=== PATIENT | male | born 1950 | race American Indian/Alaskan Native ===

== ENCOUNTER 2018-01-24 17:50 | Emergency (ER) | payer SELFPAY ==
--- NOTE | 2018-01-24 20:48 | Emergency Department Report ---
<KEYSHA MONTALVO - Last Filed: 01/24/18 22:31> ED Extremity Problem HPI - General Chief complaint: Pain General Stated complaint: LEFT LEG PAIN Time Seen by Provider: 01/24/18 20:18 Source: patient, family Mode of arrival: Ambulatory Limitations: Physical Limitation - History of Present Illness Initial comments: 67-year-old male past medical history? Dementia, smoker, chronic joint pain,? History of previous CVAs as per patient's son Raymon Del Valle . Patient is awake and alert however is unable to provide a detailed history. Rambles somewhat. Is alert to person and place but not time. Patient is unable to clearly tell me why he came to the hospital today. Patient states he was brought in by EMS. I called the patient's son at listed phone number and spoke to both his son and his [id number] Ms. Clemente. As per family members patient has had persistent cough for 2 weeks. As per patient's family members patient has had increasing difficulty with short-term memory and has been developing some degree of difficulty with cognition. There unable to elaborate further. They have been attempting to get patient primary care but have been unsuccessful. Patient is also complaining of acute on chronic left knee pain. Patient denies nausea or vomiting. States he is having cough but denies chest pain or palpitations or shortness of breath. No audible wheezing or stridor noted on exam. Patient denies sore throat earache or runny nose. Denies body aches. Patient states he smokes heavily but denies any other drug use. Patient 's son came to the ED after I requested that he come to assist me with interviewing his father. Complaint: extremity pain Onset/Timin -: week(s) Location: left, lower extremity (left knee) -: Yes arthralgia Radiation: distal Severity scale (0 -10): 6 Quality: aching Consistency: constant Improves with: nothing Worsens with: weight bearing Associated Symptoms: other (cough) - Related Data Previous Rx's Medication Instructions Recorded Last Taken Type ALBUTEROL Inhaler [ProAir HFA 2 puff IH QID PRN #1 inhalation 01/25/18 Unknown Rx Inhaler] Acetaminophen 100 mg PO QID PRN #60 tablet 01/25/18 Unknown Rx Azithromycin [Zithromax Z-MARIANNE] 250 mg PO DAILY #6 tab 01/25/18 Unknown Rx Allergies Allergy/AdvReac Type Severity Reaction Status Date / Time No Known Allergies Allergy Verified 01/24/18 20:26 ED Review of Systems ROS: Stated complaint: LEFT LEG PAIN Other details as noted in HPI Constitutional: denies: chills, fever Eyes: denies: eye pain, eye discharge, vision change ENT: denies: ear pain, throat pain Respiratory: cough. denies: shortness of breath, wheezing Cardiovascular: denies: chest pain, palpitations Endocrine: no symptoms reported Gastrointestinal: denies: abdominal pain, nausea, diarrhea Genitourinary: denies: urgency, dysuria Musculoskeletal: as per HPI, arthralgia (chronic left knee pain). denies: back pain, joint swelling Skin: denies: rash, lesions Neurological: denies: headache, weakness, paresthesias Psychiatric: denies: anxiety, depression Hematological/Lymphatic: denies: easy bleeding, easy bruising ED Past Medical Hx - Past Medical History Previous Medical History?: Yes Hx Hypertension: Yes Additional medical history: hyperlipidemia - Surgical History Past Surgical History?: Yes Additional Surgical History: bleeding ulcer repair - Social History Smoking Status: Current Every Day Smoker Substance Use Type: Alcohol - Medications Home Medications: Home Medications Medication Instructions Recorded Confirmed Last Taken Type ALBUTEROL Inhaler [ProAir HFA 2 puff IH QID PRN #1 inhalation 01/25/18 Unknown Rx Inhaler] Acetaminophen 100 mg PO QID PRN #60 tablet 01/25/18 Unknown Rx Azithromycin [Zithromax Z-MARIANNE] 250 mg PO DAILY #6 tab 01/25/18 Unknown Rx ED Physical Exam - General Limitations: Physical Limitation General appearance: alert, in no apparent distress - Head Head exam: Present: atraumatic, normocephalic - Eye Eye exam: Present: normal appearance, PERRL, EOMI - ENT ENT exam: Present: mucous membranes moist - Neck Neck exam: Present: normal inspection - Respiratory Respiratory exam: Present: decreased breath sounds (slightly decreased breath sounds no wheezing noted on exam). Absent: respiratory distress - Cardiovascular Cardiovascular Exam: Present: regular rate, normal rhythm. Absent: systolic murmur, diastolic murmur, rubs, gallop - GI/Abdominal GI/Abdominal exam: Present: soft (abdomen soft nontender nondistended), normal bowel sounds - Rectal Rectal exam: Present: deferred - Extremities Exam Extremities exam: Present: normal inspection - Expanded Lower Extremity Exam Left Knee exam: Present: full ROM (flexion and extension intact left knee), full knee extension Lower Leg exam: Present: normal inspection, full ROM - Back Exam Back exam: Present: normal inspection - Neurological Exam Neurological exam: Present: alert, oriented X3, CN II-XII intact - Expanded Neurological Exam Expanded Patient oriented to: Present: person, place Cranial nerves: EOM's Intact: Normal, Facial Sensation: Normal Cerebellar function: Finger to Nose: Normal Sensory exam: Upper Extremity Light Touch: Normal, Lower Extremity Light Touch: Normal Motor strength exam: RUE: 5, LUE: 5, RLE: 5, LLE: 5 Best Eye Response (Sarah): (4) open spontaneously Best Motor Response (Chelsea): (6) obeys commands Best Verbal Response (Chelsea): (5) oriented Sarah Total: 15 - Psychiatric Psychiatric exam: Present: normal affect, normal mood - Skin Skin exam: Present: warm, dry, intact, normal color. Absent: rash ED Course Vital Signs 01/24/18 01/24/18 18:25 20:25 Temperature 98.9 F Pulse Rate 103 H 94 H Respiratory 18 17 Rate Blood Pressure 153/95 O2 Sat by Pulse 96 99 Oximetry ED Medical Decision Making - Medical Decision Making A/P: Concern for bilateral pneumonia with bilateral pulmonary infiltrates, acute on chronic left knee pain 1- discussed case with Dr. Trevino, will send labs as per my discussion with him 2- pts son Mr. Raymon Del Valle came to Ed but left shortly afterward, stated he could be reached at phone numbed I listed in HPI via his wifes cell phone 3-I signed out pt to [facility] Mr. Cunningham to continue pt's care Critical care attestation.: If time is entered above; I have spent that time in minutes in the direct care of this critically ill patient, excluding procedure time. ED Disposition Clinical Impression: CAP (community acquired pneumonia) Qualifiers: Laterality: unspecified laterality Qualified Code(s): J18.9 - Pneumonia, unspecified organism Pneumonia of both lower lobes Qualifiers: Pneumonia type: due to unspecified organism Qualified Code(s): J18.1 - Lobar pneumonia, unspecified organism Disposition: TO HOME OR SELFCARE Condition: Good Instructions: Bacterial Pneumonia (ED) Prescriptions: Acetaminophen 100 mg PO QID PRN #60 tablet PRN Reason: pain fever ALBUTEROL Inhaler [ProAir HFA Inhaler] 2 puff IH QID PRN #1 inhalation PRN Reason: Shortness Of Breath Azithromycin [Zithromax Z-MARIANNE] 250 mg PO DAILY #6 tab Referrals: [facility] [Outside] - 3-5 Days Forms: Work/School Release Form(ED) <YARY CUNNINGHAM - Last Filed: 01/25/18 01:07> ED Course - Reevaluation(s) Reevaluation #1: 01/25/18 00:24 Pt ambulated from room to main ed and back to room without experiencing sob no cp no dizziness no light headedness, O2 sat is 98 % room air no wheezing no rhonchi, no change in mentation, discussed dicharge, tx, and follow up plan with patient, will holman same with son, son called Mr. Raymon Camilo [phone] , left message to return to picker and sorter load and unload patient, will call again in 15 min. 01/25/18 00:25 01/25/18 00:26 01/25/18 00:45 labs noted, Port score: 98 for hx cva, AMS interimittent, and age, Spoke with daughter in law advises she and son are in route to picker and sorter load and unload patient plan: Zpack 5 days, albuterol inhaler, Tylenol prn pain , cheratussin prn cough, follow up with [facility] in 2-3 days return to ed if symptoms worsen. 01/25/18 01:01 ED Medical Decision Making - Lab Data Result diagrams: 01/24/18 22:18 01/24/18 22:18 ED Disposition Is pt being admited?: No Does the pt Need Aspirin: No Time of Disposition: 01:07
[2018-01-24] MEDS ORDERED: TYLENOL PO ONE (21:04)
--- NOTE | 2018-01-24 21:15 | XRay Report ---
FINAL REPORT PROCEDURE: XR KNEE 3V LT TECHNIQUE: LEFT knee radiographs, AP, lateral and sunrise views. CPT 60622 HISTORY: left knee pain COMPARISON: No prior studies are available for comparison. FINDINGS: Fracture (s) and/or Dislocation(s): No acute fracture is seen. There is a linear bony density along medial femoral condyle which could be an old cortical chip fracture possibly associated with medial collateral ligament injury.. Alignment: Normal . Joint space(s): Normal . Soft tissues: There is no joint effusion.. Bone mineralization: Normal . Foreign bodies: None . IMPRESSION: Suspected old fracture of the medial femoral condyle. No acute bony or soft tissue abnormality is seen..
--- NOTE | 2018-01-24 21:52 | XRay Report ---
FINAL REPORT PROCEDURE: XR CHEST ROUTINE 2V TECHNIQUE: A portable AP chest radiograph was obtained at 01/24/2018 21:07 (EST) . CPT 10642 HISTORY: persistent cough COMPARISON: No prior studies are available for comparison. FINDINGS: Heart: Normal. Mediastinum/Vessels: Normal. Lungs/Pleural space: There are bilateral perihilar pulmonary opacities suggesting infiltrates. These are more prominent on the left. Pulmonary nodules not entirely excluded.. There are no effusions or pneumothoraces. Bony thorax: No acute osseous abnormality. Life support devices: None. IMPRESSION: The heart size is normal.. There are bilateral perihilar pulmonary opacities suggesting infiltrates. These are more prominent on the left. Pulmonary nodules not entirely excluded.. There are no effusions or pneumothoraces.
[2018-01-24] MEDS ORDERED: cefTRIAXone 1 GM in NACL 0.9% 20 ML IV ONE (22:12)
[2018-01-24] MEDS ORDERED: NACL 0.9% 500 ML 500 ML IV ONE (22:12)
[2018-01-24] MEDS ORDERED: ROCEPHIN IM ONE (22:23)
[2018-01-24 22:43] LABS: BUN/Creatinine Ratio 16; Blood Urea Nitrogen 14 mg/dL (9-20); Calcium 10.2 mg/dL (8.4-10.2); Hemolysis Index 17
[2018-01-24 22:45] LABS: Basophils % (Auto) 0.3 % (0.0-1.8); Eosinophils # (Auto) 0.3 K/mm3 (0.0-0.4); Eosinophils % (Auto) 2.6 % (0.0-4.3); Hematocrit 45.2 % (35.5-45.6); Hemoglobin 14.8 gm/dl (11.8-15.2); Lymphocytes % (Auto) 10.4 % (13.4-35.0); Mean Corpuscular HGB Conc 33 % (32-34); Mean Corpuscular Hemoglobin 32 pg (28-32); Mean Corpuscular Volume 98 fl (84-94); Monocytes % (Auto) 10.5 % (0.0-7.3); Platelet Count 243 K/mm3 (140-440); Red Blood Count 4.63 M/mm3 (3.65-5.03); Red Cell Distribution Width 16.1 % (13.2-15.2)
[2018-01-25 01:16] VITALS: BP 165/94
== END 2018-01-25 01:14 | disposition home or self-care (01) ==
LOC: ED 17:50
DX: J18.9 Pneumonia, unspecified organism (principal); I10 Essential (primary) hypertension; F17.200 Nicotine dependence, unspecified, uncomplicated
CPT/HCPCS: 36415; 71046; 73562; 80048; 82140; 82805; 85025; 87040; 87400; 96365; 99284; J0696; J7040

== ENCOUNTER 2018-04-03 02:06 | Emergency (ER) | payer SELFPAY ==
[2018-04-03 05:07] LABS: Basophils % (Auto) 0.6 % (0.0-1.8); Eosinophils # (Auto) 0.2 K/mm3 (0.0-0.4); Eosinophils % (Auto) 2.6 % (0.0-4.3); Hematocrit 44.7 % (35.5-45.6); Hemoglobin 14.9 gm/dl (11.8-15.2); Lymphocytes # (Auto) 1.8 K/mm3 (1.2-5.4); Lymphocytes % (Auto) 26.6 % (13.4-35.0); Mean Corpuscular HGB Conc 33 % (32-34); Mean Corpuscular Hemoglobin 33 pg (28-32); Mean Corpuscular Volume 97 fl (84-94); Monocytes # (Auto) 0.7 K/mm3 (0.0-0.8); Monocytes % (Auto) 9.6 % (0.0-7.3); Platelet Count 268 K/mm3 (140-440); Red Blood Count 4.59 M/mm3 (3.65-5.03); Red Cell Distribution Width 16.2 % (13.2-15.2)
[2018-04-03 05:43] LABS: Alanine Aminotransferase 13 units/L (7-56); Albumin 4.6 g/dL (3.9-5); BUN/Creatinine Ratio 13; Blood Urea Nitrogen 9 mg/dL (9-20); Calcium 9.6 mg/dL (8.4-10.2); Hemolysis Index 2
--- NOTE | 2018-04-03 12:34 | Cat Scan Report ---
CT HEAD WITHOUT CONTRAST INDICATION: Dizziness, lightheadedness. COMPARISON: None similar. FINDINGS: Noncontrast head CT demonstrates symmetric, age-appropriate ventricles and sulci. Moderate to severe periventricular and white matter hypodense small vessel ischemic disease. Few small scattered lacunar infarcts as well, measuring up to 0.6 cm left inferior ganglionic, axial series 2, image 27. No definite acute infarct, hemorrhage, mass effect or midline shift. No abnormal extra axial fluid collections. Normal imaged posterior fossa with preserved basilar cisterns. Normal eye globes. Clear imaged paranasal sinuses and mastoid air cells. Slight leftward nasal septal bowing. Intact calvarium. Normal scalp. Few missing teeth. Approximately 1 cm left maxillary periapical cyst not excluded partially imaged as on axial series 3, image 1. CONCLUSION: No acute intracranial CT abnormality with age-appropriate atrophy, advanced microvascular changes and few other findings, as above. Thank you for the opportunity to participate in this patient's care.
--- NOTE | 2018-04-03 12:49 | XRay Report ---
PORTABLE CHEST INDICATION: Dizziness, lightheadedness. COMPARISON: 01/24/2018 FINDINGS: Portable, frontal chest radiograph again demonstrates normal cardiomediastinal silhouette. Lungs now clear without pleural effusions or CHF. EKG leads. Stable surgical clips about the GE junction. Intact bones. CONCLUSION: No acute chest process, as described. Thank you for the opportunity to participate in this patient's care.
[2018-04-03] MEDS ORDERED: CATAPRES PO ONE (12:59)
--- NOTE | 2018-04-03 13:03 | Emergency Department Report ---
ED Dizziness HPI - General Chief Complaint: Dizziness Stated Complaint: DIZZINESS Time Seen by Provider: 04/03/18 11:52 Source: patient Mode of arrival: Ambulatory Limitations: No Limitations - History of Present Illness Initial Comments: 59-year-old male history of high blood pressure status is chronic knee problems and arthritis previous chart states likely a history of dementia patient also relates history of hypertension question of compliance. Last night around midnight he woke up with a headache he's not sure if it was gradual or sudden he thinks he might of been somewhat sudden. He occasionally gets headaches but this one spell worse. He was arrested was nonexertional. He is here for evaluation of a headache that woke him up out of sleep that may have been somewhat sudden in onset. This was associated was swung me headedness and elevated blood pressure he is here for evaluation of dizziness with elevated blood pressure and a headache. He denies nausea vomiting denies stiff neck denies fever denies sudden onset of exertional headache however he did have possibly an acute sudden onset headache. There was somewhat different to previous headaches. He denies any focal neuro complaints no black or bloody stools denied syncope. He does occasionally drink denies DTs in the past. He also has a history of ulcer disease. But denies black or bloody stools today. Denied any syncope MD Complaint: dizziness, lightheadedness, near syncope -: Gradual, days(s), unknown Timing: now resolved Description: near-syncope Severity: mild, moderate (denies vertigo but is somewhat of a poor historian does have a history of possible dementia) - Related Data Previous Rx's Medication Instructions Recorded Last Taken Type ALBUTEROL Inhaler [ProAir HFA 2 puff IH QID PRN #1 inhalation 01/25/18 Unknown Rx Inhaler] Acetaminophen 100 mg PO QID PRN #60 tablet 01/25/18 Unknown Rx Azithromycin [Zithromax Z-MARIANNE] 250 mg PO DAILY #6 tab 01/25/18 Unknown Rx Allergies Allergy/AdvReac Type Severity Reaction Status Date / Time No Known Allergies Allergy Verified 01/24/18 20:26 ED Review of Systems ROS: Stated complaint: DIZZINESS Other details as noted in HPI Comment: Unobtainable due to pts medical conditions Constitutional: denies: diaphoresis, fever, malaise Eyes: denies: eye discharge, vision change ENT: denies: dental pain, hearing loss, epistaxis Respiratory: denies: shortness of breath, SOB with exertion, SOB at rest, stridor Cardiovascular: syncope. denies: chest pain, palpitations, dyspnea on exertion , orthopnea, edema Gastrointestinal: denies: abdominal pain, nausea, vomiting, diarrhea, constipation, hematemesis, melena, hematochezia Neurological: headache, other (dizziness). denies: numbness, paresthesias, confusion, abnormal gait, vertigo ED Past Medical Hx - Past Medical History Hx Hypertension: Yes Hx Arthritis: Yes (left knee) Hx Dementia: Yes (According to daughter) Additional medical history: hyperlipidemia - Surgical History Additional Surgical History: bleeding ulcer repair - Social History Smoking Status: Current Every Day Smoker - Medications Home Medications: Home Medications Medication Instructions Recorded Confirmed Last Taken Type ALBUTEROL Inhaler [ProAir HFA 2 puff IH QID PRN #1 inhalation 01/25/18 Unknown Rx Inhaler] Acetaminophen 100 mg PO QID PRN #60 tablet 01/25/18 Unknown Rx Azithromycin [Zithromax Z-MARIANNE] 250 mg PO DAILY #6 tab 01/25/18 Unknown Rx ED Physical Exam - General Limitations: No Limitations General appearance: alert - Head Head exam: Present: atraumatic, normocephalic - Eye Eye exam: Present: PERRL, EOMI - ENT ENT exam: Present: normal exam, normal orophraynx - Neck Neck exam: Present: normal inspection. Absent: tenderness, meningismus - Respiratory Respiratory exam: Present: normal lung sounds bilaterally. Absent: respiratory distress, wheezes, rales, rhonchi, stridor, chest wall tenderness, accessory muscle use, decreased breath sounds, prolonged expiratory - Cardiovascular Cardiovascular Exam: Present: regular rate. Absent: rubs, gallop - GI/Abdominal GI/Abdominal exam: Present: soft. Absent: distended, tenderness, guarding, rebound, mass, pulsatile mass - Extremities Exam Extremities exam: Present: normal inspection, normal capillary refill. Absent: pedal edema, joint swelling, calf tenderness - Back Exam Back exam: Present: normal inspection. Absent: CVA tenderness (L), muscle spasm , paraspinal tenderness, vertebral tenderness - Neurological Exam Neurological exam: Present: alert, CN II-XII intact, other (awake and alert occasionally gets confused with questioning). Absent: motor sensory deficit - Psychiatric Psychiatric exam: Present: normal affect, normal mood - Skin Skin exam: Present: warm. Absent: cyanosis, diaphoretic, erythema, urticaria, vesicles, petechiae ED Course Vital Signs 04/03/18 04/03/18 04/03/18 04:15 11:40 11:46 Temperature 98.2 F Pulse Rate 57 L 55 L 46 L Pulse Rate [ Lying] Pulse Rate [ Sitting] Pulse Rate [ Standing] Respiratory 16 14 14 Rate Blood Pressure 189/97 220/112 Blood Pressure [Left] Blood Pressure [Lying] Blood Pressure [Sitting] Blood Pressure [Standing] O2 Sat by Pulse 100 98 Oximetry 04/03/18 04/03/18 04/03/18 11:53 12:00 12:18 Temperature 97.4 F L Pulse Rate 54 L 53 L 56 L Pulse Rate [ Lying] Pulse Rate [ Sitting] Pulse Rate [ Standing] Respiratory 20 20 17 Rate Blood Pressure 210/101 210/101 Blood Pressure 220/112 [Left] Blood Pressure [Lying] Blood Pressure [Sitting] Blood Pressure [Standing] O2 Sat by Pulse 98 98 Oximetry 04/03/18 04/03/18 04/03/18 12:30 12:46 13:00 Temperature Pulse Rate 52 L 55 L 52 L Pulse Rate [ Lying] Pulse Rate [ Sitting] Pulse Rate [ Standing] Respiratory 22 9 L 21 Rate Blood Pressure 210/101 210/101 210/101 Blood Pressure [Left] Blood Pressure [Lying] Blood Pressure [Sitting] Blood Pressure [Standing] O2 Sat by Pulse Oximetry 04/03/18 04/03/18 04/03/18 13:16 13:30 13:38 Temperature Pulse Rate 54 L 62 Pulse Rate [ Lying] Pulse Rate [ Sitting] Pulse Rate [ Standing] Respiratory 15 14 Rate Blood Pressure 210/101 210/101 220/112 Blood Pressure [Left] Blood Pressure [Lying] Blood Pressure [Sitting] Blood Pressure [Standing] O2 Sat by Pulse Oximetry 04/03/18 04/03/18 14:16 14:25 Temperature Pulse Rate Pulse Rate [ 50 L Lying] Pulse Rate [ 59 L Sitting] Pulse Rate [ 75 Standing] Respiratory Rate Blood Pressure 114/74 Blood Pressure [Left] Blood Pressure 141/78 [Lying] Blood Pressure 99/72 [Sitting] Blood Pressure 114/74 [Standing] O2 Sat by Pulse 100 Oximetry ED Medical Decision Making - Lab Data Result diagrams: 04/03/18 04:40 04/03/18 04:40 - EKG Data -: EKG Interpreted by Me - Radiology Data Radiology results: report reviewed - Medical Decision Making KG shows diffuse ST segment elevation in the troponin was not elevated CT head was chronic changes patient will be admitted for further evaluation of dizzy spells and near-syncope he is not orthostatic he denies black or bloody stool urinary further evaluation for dizzy spells evaluate for the possibility of cardiogenic syncope as was discussed with Dr. Vargas of hospitalist service for abdomen Critical care attestation.: If time is entered above; I have spent that time in minutes in the direct care of this critically ill patient, excluding procedure time. ED Disposition Clinical Impression: Dizziness, Near syncope, Hypertension Disposition: OP ADMIT IP TO THIS HOSP Is pt being admited?: Yes Condition: Stable Instructions: Hypertension (ED) Referrals: PRIMARY CARE, [Primary Care Provider] - 3-5 Days Time of Disposition: 16:44
[2018-04-03 13:26] LABS: Bilirubin,Urine NEG (Negative); Blood,Urine SM (Negative); Color,Urine Yellow (Yellow); Hyaline Casts,Urine 1 /LPF; Mucus,Urine FEW /HPF; Protein,Urine <15 mg/dL mg/dL (Negative); Urobilinogen,Urine < 2.0 mg/dL (<2.0)
--- NOTE | 2018-04-03 17:02 | History and Physical Report ---
History of Present Illness Chief complaint: Dizziness, forgetfulness History of present illness: 67 YO Male with HTN, OA, Nicotine Dependence, HLD, Dementia, Debility presents to ED for evaluation of dizziness. 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 Pt underwent CT head which revealed no acute findings. Pt medically optimized and discharged home. Pt instructed to f/u pcp 1wk, and well as neurology prn. Past History Past Medical History: arthritis, hypertension Past Surgical History: bowel surgery Social history: single Family history: no significant family history Medications and Allergies Allergies Allergy/AdvReac Type Severity Reaction Status Date / Time No Known Allergies Allergy Verified 01/24/18 20:26 Home Medications Medication Instructions Recorded Confirmed Last Taken Type ALBUTEROL Inhaler [ProAir HFA 2 puff IH QID PRN #1 inhalation 01/25/18 Unknown Rx Inhaler] Acetaminophen 100 mg PO QID PRN #60 tablet 01/25/18 Unknown Rx Azithromycin [Zithromax Z-MARIANNE] 250 mg PO DAILY #6 tab 01/25/18 Unknown Rx Donepezil [Aricept] 5 mg PO QDAY #30 tablet 04/03/18 Unknown Rx Review of Systems Constitutional: no weight loss, no weight gain, no fever, no chills Ears, nose, mouth and throat: no ear pain, no ear discharge, no tinnitis, no decreased hearing, no nose pain Cardiovascular: no chest pain, no orthopnea, no palpitations, no rapid/ irregular heart beat, no edema Respiratory: no cough, no cough with sputum, no excessive sputum, no hemoptysis , no shortness of breath Gastrointestinal: no abdominal pain, no nausea, no vomiting, no diarrhea, no constipation, no change in bowel habits Genitourinary Male: no dysuria, no hematuria, no flank pain, no discharge, no urinary frequency Rectal: no pain, no incontinence, no bleeding Musculoskeletal: no neck stiffness, no neck pain, no shooting arm pain, no arm numbness/tingling, no low back pain, no shooting leg pain Integumentary: no rash, no pruritis, no redness, no sores, no wounds Neurological: memory loss, no head injury, no paralysis, no weakness, no parathesias, no numbness, no seizures, no syncope, no tremors Psychiatric: memory loss, no anxiety, no change in sleep habits, no sleep disturbances, no insomnia, no hypersomnia, no change in appetite, no change in libido, no suicidal ideation Endocrine: no cold intolerance, no heat intolerance, no polyphagia, no excessive thirst, no polydipsia, no nocturia, no excessive sweating Hematologic/Lymphatic: no easy bruising, no easy bleeding, no lymphadenopathy, no lymphedema Allergic/Immunologic: no urticaria, no allergic rhinitis, no wheezing, no persistent infections, no anaphylaxis, no angioedema Exam - Constitutional Vitals: Temp Pulse Resp BP Pulse Ox 97.4 F L 75 14 114/74 100 04/03/18 11:53 04/03/18 14:25 04/03/18 13:30 04/03/18 14:25 04/03/18 14:16 General appearance: Present: no acute distress, well-nourished - EENT Eyes: Present: PERRL ENT: hearing intact, clear oral mucosa - Neck Neck: Present: supple, normal ROM - Respiratory Respiratory effort: normal Respiratory: bilateral: CTA - Cardiovascular Heart Sounds: Present: S1 & S2. Absent: rub, click - Extremities Extremities: pulses symmetrical, No edema Peripheral Pulses: within normal limits - Abdominal General gastrointestinal: Present: soft, non-tender, non-distended, normal bowel sounds Male genitourinary: Present: normal - Integumentary Integumentary: Present: clear, warm, dry - Musculoskeletal Musculoskeletal: gait normal, strength equal bilaterally - Psychiatric Psychiatric: appropriate mood/affect, intact judgment & insight - Neurologic Neurologic: CNII-XII intact, moves all extremities Results - Labs CBC & Chem 7: 04/03/18 04:40 04/03/18 04:40 Labs: Abnormal lab results 04/03/18 04/03/18 Range/Units 04:40 04:40 MCV 97 H (84-94) fl MCH 33 H (28-32) pg RDW 16.2 H (13.2-15.2) % [place] % (Auto) 9.6 H (0.0-7.3) % Potassium 3.5 L (3.6-5.0) mmol/L Creatinine 0.7 L (0.8-1.5) mg/dL Assessment and Plan - Patient Problems (1) Dementia Current Visit: Yes Status: Acute Qualifiers: Dementia type: vascular dementia Plan to address problem: Discharge home with Aricept, f/u pcp 1wk,
[2018-04-03 18:13] LABS: Free T4 (Free Thyroxine) 1.36 ng/dL (0.76-1.46)
[2018-04-03 18:48] VITALS: BP 130/70
== END 2018-04-03 19:27 | disposition admitted as inpatient to this hospital (09) ==
LOC: ED 02:06
DX: R42 Dizziness and giddiness (principal); R55 Syncope and collapse; I10 Essential (primary) hypertension; M19.90 Unspecified osteoarthritis, unspecified site; E78.5 Hyperlipidemia, unspecified; F17.200 Nicotine dependence, unspecified, uncomplicated
CPT/HCPCS: 36415; 70450; 71045; 80053; 81001; 84439; 84443; 84484; 85025; 85379; 93005; 93010

== ENCOUNTER 2019-09-14 18:51 | Emergency (ER) | payer MEDICARE ==
[2019-09-14] MEDS ORDERED: SODIUM CHLORIDE 0.9% 500 ML 500 ML IV ONE (19:41)
--- NOTE | 2019-09-14 19:45 | Emergency Department Report ---
ED General Adult HPI - General Chief complaint: Dizziness Stated complaint: PASSED OUT/FALL Time Seen by Provider: 09/14/19 19:28 Source: patient, family, EMS ( EMS documentation not available at time of chart dictation ), RN notes reviewed, old records reviewed Mode of arrival: Stretcher Limitations: Altered Mental Status, Other (patient is intoxicated) - History of Present Illness Initial comments: This is a 68-year-old gentleman. This patient is not known to this provider previously. His past medical history includes alcohol, tobacco use, probable dementia. Patient was admitted to this hospital for syncope in 2018. Had a CT angiogram chest negative for acute disease, echocardiogram showed unremarkable ejection fraction, 65%, carotid duplex which was negative for significant or acute findings, an MRI of the brain suggesting chronic ischemic findings. Apparently, the patient recently received a prescription for amlodipine, took it for the first time today, and became hypotensive. As per nursing documentation, patient hypotensive in the field, given fluids, hypotension resolved. In the emergency room, the patient is intoxicated. He is flirting with nursing staff and phlebotomy staff. He has no physical complaints at this time. Family not currently available for collateral information at this time. Patient has no recollection of the aforementioned events. -: unknown Quality: other Consistency: other Improves with: other Worsens with: other Associated Symptoms: other - Related Data Allergies Allergy/AdvReac Type Severity Reaction Status Date / Time No Known Allergies Allergy Verified 06/26/18 07:23 ED Review of Systems ROS: Stated complaint: PASSED OUT/FALL Other details as noted in HPI Comment: Unobtainable due to pts medical conditions ED Past Medical Hx - Past Medical History Hx Hypertension: Yes Hx CVA: Yes Hx Arthritis: Yes (left knee) Hx Seizures: Yes (QUESTIONABLE) Hx Dementia: Yes Additional medical history: hyperlipidemia, Mass on liver (Daughter in law states it not CA) - Surgical History Additional Surgical History: bleeding ulcer repair, - Social History Smoking Status: Current Every Day Smoker Substance Use Type: Alcohol ED Physical Exam - General Limitations: Other (the patient is intoxicated. The patient is poor historian.) General appearance: alert, appears intoxicated - Head Head exam: Present: atraumatic, normocephalic - Eye Eye exam: Present: normal appearance, EOMI. Absent: nystagmus - ENT ENT exam: Present: normal exam, normal orophraynx, mucous membranes moist, normal external ear exam - Neck Neck exam: Present: normal inspection, full ROM. Absent: tenderness, mening ismus - Respiratory Respiratory exam: Present: normal lung sounds bilaterally. Absent: respiratory distress - Cardiovascular Cardiovascular Exam: Present: regular rate, normal rhythm, normal heart sounds. Absent: bradycardia, tachycardia, irregular rhythm, systolic murmur, diastolic murmur, rubs, gallop - GI/Abdominal GI/Abdominal exam: Present: soft. Absent: distended, tenderness, guarding, rebound, rigid, pulsatile mass - Rectal Rectal exam: Present: deferred - Extremities Exam Extremities exam: Present: normal inspection, full ROM, other (2+ pulses noted in the bilateral upper, lower extremities. There is no long bone tenderness. Musculoskeletal compartments are soft. The pelvis is stable.). Absent: pedal edema, joint swelling, calf tenderness - Back Exam Back exam: Present: normal inspection, full ROM. Absent: tenderness, CVA tenderness (R), CVA tenderness (L), paraspinal tenderness, vertebral tenderness - Neurological Exam Neurological exam: Present: alert (the patient is alert to name. The patient will follow some commands.), other (there is no facial droop. The tongue is midline. Moving 4 extremities spontaneously. Smiling and speaking to nursing staff.) - Skin Skin exam: Present: warm, dry, intact, normal color. Absent: rash ED Course Vital Signs 09/14/19 09/14/19 09/14/19 19:26 19:30 19:32 Temperature 97.3 F L Pulse Rate 84 Respiratory 18 Rate Blood Pressure 136/70 136/70 Blood Pressure [Left] O2 Sat by Pulse 98 99 100 Oximetry 09/14/19 09/14/19 09/14/19 19:46 20:00 21:06 Temperature Pulse Rate 76 Respiratory 16 Rate Blood Pressure 126/72 162/92 162/92 Blood Pressure [Left] O2 Sat by Pulse 98 97 99 Oximetry 09/14/19 09/14/19 09/14/19 21:15 21:30 21:40 Temperature Pulse Rate 77 Respiratory 22 18 Rate Blood Pressure 131/74 131/74 Blood Pressure [Left] O2 Sat by Pulse 98 98 98 Oximetry 09/14/19 09/14/19 09/14/19 23:00 23:10 23:30 Temperature 98.3 F Pulse Rate 86 75 70 Respiratory 18 18 22 Rate Blood Pressure 150/94 140/77 Blood Pressure 150/94 [Left] O2 Sat by Pulse 98 97 99 Oximetry 09/15/19 09/15/19 09/15/19 00:00 00:30 01:00 Temperature Pulse Rate 65 65 65 Respiratory 17 18 21 Rate Blood Pressure 127/68 127/69 128/75 Blood Pressure [Left] O2 Sat by Pulse 97 96 95 Oximetry - Reevaluation(s) Reevaluation #1: 09/14/19 22:45 Differential diagnosis, including not limited to: Orthostasis, vagal event, dehydration, medication side effect, alcohol intoxication, AAA, retroperitoneal hematoma Assessment and plan: 68-year-old gentleman, clinically intoxicated, found to have elevated blood alcohol level, with possible complaint of syncope. He is not tachycardic, tachypneic or hypoxic, I think a pulmonary embolism is quite unlikely. He is flirty with nursing staff and phlebotomy staff. He is not aggressive, violent or combative. Screening laboratory studies reviewed and appreciated. EKG unchanged from prior. Noncontrast CT scan brain, cervical spine negative for acute disease. CT scan abdomen pelvis pending, although clinically do not have high suspicion for intra-abdominal pathology. Repeat EKG, troponin and urinalysis pending at this time. At the moment, the patient is resting comfortably, in his stretcher, and in no acute distress. Reevaluation #2: 09/14/19 23:39 CT scan brain, cervical spine, abdomen pelvis negative for acute disease. Resting comfortably in stretcher currently and in no acute distress. Repeat troponin, urinalysis pending. 09/14/19 23:58 troponin is negative 3. EKG unchanged 2. No convulsive events, sleeping comfortably, no loss of consciousness, patient does not appear to have an emergent medical condition presently, and he suitable for discharge with outpatient follow-up. ED Medical Decision Making - Lab Data Result diagrams: 09/14/19 20:35 09/14/19 20:35 Vital Signs 09/14/19 09/14/19 09/14/19 19:26 19:30 19:32 Temperature 97.3 F L Pulse Rate 84 Respiratory 18 Rate Blood Pressure 136/70 136/70 O2 Sat by Pulse 98 99 100 Oximetry 09/14/19 09/14/19 09/14/19 19:46 20:00 21:06 Temperature Pulse Rate 76 Respiratory 16 Rate Blood Pressure 126/72 162/92 162/92 O2 Sat by Pulse 98 97 99 Oximetry 09/14/19 09/14/19 21:15 21:30 Temperature Pulse Rate 77 Respiratory 22 Rate Blood Pressure 131/74 131/74 O2 Sat by Pulse 98 98 Oximetry Lab Results 09/14/19 09/14/19 09/14/19 Range/Units 20:35 20:35 20:35 WBC 7.5 (4.5-11.0) K/mm3 RBC 4.49 (3.65-5.03) M/mm3 Hgb 14.2 (11.8-15.2) gm/dl Hct 42.3 (35.5-45.6) % MCV 94 (84-94) fl MCH 32 (28-32) pg MCHC 34 (32-34) % RDW 16.4 H (13.2-15.2) % Plt Count 272 (140-440) K/mm3 PT 12.7 (12.2-14.9) Sec. INR 0.96 (0.87-1.13) Sodium 138 (137-145) mmol/L Potassium 3.4 L (3.6-5.0) mmol/L Chloride 105.1 (98-107) mmol/L Carbon Dioxide 20 L (22-30) mmol/L Anion Gap 16 mmol/L BUN 9 (9-20) mg/dL Creatinine 0.8 (0.8-1.5) mg/dL Estimated GFR > 60 ml/min BUN/Creatinine Ratio 11 % Glucose 86 (75-100) mg/dL Calcium 9.1 (8.4-10.2) mg/dL Total Bilirubin 0.20 (0.1-1.2) mg/dL AST 19 (5-40) units/L ALT 11 (7-56) units/L Alkaline Phosphatase 78 (35-129) units/L Troponin T < 0.010 (0.00-0.029) ng/mL Total Protein 7.5 (6.3-8.2) g/dL Albumin 4.3 (3.9-5) g/dL Albumin/Globulin Ratio 1.3 % TSH (0.270-4.200) mlU/mL Free T4 (0.76-1.46) ng/dL Salicylates (2.8-20.0) mg/dL Acetaminophen (10.0-30.0) ug/mL Plasma/Serum Alcohol (0-0.07) % 09/14/19 09/14/19 09/14/19 Range/Units 20:35 20:35 20:35 WBC (4.5-11.0) K/mm3 RBC (3.65-5.03) M/mm3 Hgb (11.8-15.2) gm/dl Hct (35.5-45.6) % MCV (84-94) fl MCH (28-32) pg MCHC (32-34) % RDW (13.2-15.2) % Plt Count (140-440) K/mm3 PT (12.2-14.9) Sec. INR (0.87-1.13) Sodium (137-145) mmol/L Potassium (3.6-5.0) mmol/L Chloride (98-107) mmol/L Carbon Dioxide (22-30) mmol/L Anion Gap mmol/L BUN (9-20) mg/dL Creatinine (0.8-1.5) mg/dL Estimated GFR ml/min BUN/Creatinine Ratio % Glucose (75-100) mg/dL Calcium (8.4-10.2) mg/dL Total Bilirubin (0.1-1.2) mg/dL AST (5-40) units/L ALT (7-56) units/L Alkaline Phosphatase (35-129) units/L Troponin T (0.00-0.029) ng/mL Total Protein (6.3-8.2) g/dL Albumin (3.9-5) g/dL Albumin/Globulin Ratio % TSH 2.520 (0.270-4.200) mlU/mL Free T4 1.34 (0.76-1.46) ng/dL Salicylates < 0.3 L (2.8-20.0) mg/dL Acetaminophen (10.0-30.0) ug/mL Plasma/Serum Alcohol (0-0.07) % 09/14/19 09/14/19 09/14/19 Range/Units 20:35 20:35 20:35 WBC (4.5-11.0) K/mm3 RBC (3.65-5.03) M/mm3 Hgb (11.8-15.2) gm/dl Hct (35.5-45.6) % MCV (84-94) fl MCH (28-32) pg MCHC (32-34) % RDW (13.2-15.2) % Plt Count (140-440) K/mm3 PT (12.2-14.9) Sec. INR (0.87-1.13) Sodium (137-145) mmol/L Potassium (3.6-5.0) mmol/L Chloride (98-107) mmol/L Carbon Dioxide (22-30) mmol/L Anion Gap mmol/L BUN (9-20) mg/dL Creatinine (0.8-1.5) mg/dL Estimated GFR ml/min BUN/Creatinine Ratio % Glucose (75-100) mg/dL Calcium (8.4-10.2) mg/dL Total Bilirubin (0.1-1.2) mg/dL AST (5-40) units/L ALT (7-56) units/L Alkaline Phosphatase (35-129) units/L Troponin T < 0.010 (0.00-0.029) ng/mL Total Protein (6.3-8.2) g/dL Albumin (3.9-5) g/dL Albumin/Globulin Ratio % TSH (0.270-4.200) mlU/mL Free T4 (0.76-1.46) ng/dL Salicylates (2.8-20.0) mg/dL Acetaminophen < 5.0 L (10.0-30.0) ug/mL Plasma/Serum Alcohol 0.10 H (0-0.07) % - EKG Data -: EKG Interpreted by Ms EKG shows normal: sinus rhythm Rate: normal - EKG Data When compared to previous EKG there are: no significant change 09/14/19 22:47 The EKG today shows motion artifact. This is a sinus rhythm, with a normal axis, there is left ventricular hypertrophy, the QTC is prolonged, the EKG is not consistent with STEMI. The EKG appears to be unchanged from prior EKG 2017. Rate is 78 bpm. - Radiology Data Radiology results: pending, report reviewed, image reviewed Noncontrast CT scan of the brain, cervical spine negative for acute disease. X-ray the chest is negative for acute disease. Critical care attestation.: If time is entered above; I have spent that time in minutes in the direct care of this critically ill patient, excluding procedure time. ED Disposition Clinical Impression: History of hypotension Alcohol intoxication Qualifiers: Complication of substance-induced condition: uncomplicated Qualified Code(s): F10.920 - Alcohol use, unspecified with intoxication, uncomplicated Dementia Qualifiers: Dementia type: unspecified type Dementia behavioral disturbance: with beh avioral disturbance Qualified Code(s): F03.91 - Unspecified dementia with b ehavioral disturbance Disposition: DC- TO HOME OR SELFCARE Is pt being admited?: No Does the pt Need Aspirin: No Condition: Stable Additional Instructions: Do not drive or operate motor vehicles for the next 6 months. For the time being, discontinue blood pressure medication, amlodipine. Do not take this blood pressure medication. Follow-up with the primary care doctor within the next 7-10 days for repeat checkup and evaluation and reevaluation of blood pressure medications. Patient found to have alcohol intoxication today. Recommend the patient discontinue or minimize alcohol consumption. Return to the emergency room right away with new, worsened or different symptoms, or symptoms not present on the initial emergency room evaluation. Patient may follow-up with the primary care doctor or scrap separator within the next 7-10 days for repeat checkup and/or evaluation. Referrals: PRIMARY CARE, [Primary Care Provider] - 7-10 days [facility] [Provider Group] - 7-10 days [facility] [Provider Group] - 7-10 days [facility] [Provider Group] - 7-10 days
[2019-09-14] MEDS ORDERED: D5W/0.45% NACL 1,000 ML IV SCH (20:00)
--- NOTE | 2019-09-14 20:11 | XRay Report ---
CHEST 1 VIEW 1950 INDICATION / CLINICAL INFORMATION: MAIN: Lightheadedness/Dizziness Pt just got prescribed amlodipine, took it for the first time today, became disoriented and hypotensive, per EMS BP was 80/50, given NS bolus by EMS, upon arrival to ED pt's BP 136/70. COMPARISON: 07/11/2018 FINDINGS: SUPPORT DEVICES: None HEART / MEDIASTINUM: No significant abnormality. LUNGS / PLEURA: Mild chronic changes are again seen. No areas of consolidation are noted. No pneumoth orax. ADDITIONAL FINDINGS: No significant additional findings. IMPRESSION: No significant acute abnormality Signer Name: Esteban Yi MD Signed: 09/14/2019 8:07 PM Workstation Name: [id number]
[2019-09-14 21:02] LABS: Hematocrit 42.3 % (35.5-45.6); Hemoglobin 14.2 gm/dl (11.8-15.2); Mean Corpuscular HGB Conc 34 % (32-34); Mean Corpuscular Volume 94 fl (84-94); Platelet Count 272 K/mm3 (140-440); Red Blood Count 4.49 M/mm3 (3.65-5.03); Red Cell Distribution Width 16.4 % (13.2-15.2)
[2019-09-14 21:14] LABS: INR 0.96 (0.87-1.13)
[2019-09-14 21:22] LABS: Alanine Aminotransferase 11 units/L (7-56); Albumin 4.3 g/dL (3.9-5); BUN/Creatinine Ratio 11; Blood Urea Nitrogen 9 mg/dL (9-20); Calcium 9.1 mg/dL (8.4-10.2); Hemolysis Index 8
[2019-09-14] MEDS ORDERED: POTASSIUM CHLORIDE ER 20 MEQ TAB PO ONE (22:33)
--- NOTE | 2019-09-14 22:33 | Cat Scan Report ---
CT head without contrast INDICATION : Syncope with hypertension with possible head trauma. Headache. TECHNIQUE: Axial imaging performed from the skull apex through the skull base without the use of con trast. All CT examinations performed at this facility utilize dose modulation, iterative reconstruct ion or weight-based dosing, when appropriate, to reduce radiation dose to as low as reasonably achiev able. COMPARISON: 07/11/2018 FINDINGS: No acute intracranial hemorrhage or parenchymal abnormality. Mild increased periventricula r hypodensities are noted bilaterally. Ventricles are normal in size and appear symmetric. Soft tis sues including the orbits appear normal. No acute osseous abnormality. Sinuses and mastoid air ce lls are clear. IMPRESSION: No acute abnormality. No change from 07/11/2018 Signer Name: Handy Parker MD Signed: 09/14/2019 10:28 PM Workstation Name: [id number]
--- NOTE | 2019-09-14 22:34 | Cat Scan Report ---
CT cervical spine without contrast INDICATION: near syncope hypotension trauma. Neck pain following injury TECHNIQUE: Axial imaging performed through the cervical spine without the use of contrast. Sagittal and coronal reconstructed images were also reviewed. All CT scans at this location are performed us ing CT dose reduction for ALARA by means of automated exposure control. COMPARISON: None FINDINGS: Alignment: Spinal alignment is normal. Bones: There is no acute osseous abnormality. Mild multilevel discogenic DJD is present. Diffuse o steopenia. There is mild multilevel degenerative changes although no significant neural foraminal mary nosis is identified at any level. Soft tissues: No acute or significant incidental soft tissue abnormality. IMPRESSION: No acute abnormality. Signer Name: Handy Parker MD Signed: 09/14/2019 10:30 PM Workstation Name: [id number]
--- NOTE | 2019-09-14 22:40 | Cat Scan Report ---
CT ABDOMEN AND PELVIS WITHOUT CONTRAST INDICATION / CLINICAL INFORMATION: near syncope hypotension trauma. TECHNIQUE: Axial CT images were obtained through the abdomen and pelvis without IV contrast. All CT scans at [facility] location are performed using CT dose reduction for ALARA by means of automated exposure control. COMPARISON: None available. FINDINGS: LOWER CHEST: No significant abnormality. LIVER: No significant abnormality. GALLBLADDER: No significant abnormality. BILE DUCTS: No significant abnormality. PANCREAS: No significant abnormality. SPLEEN: No significant abnormality. ADRENALS: No significant abnormality. RIGHT KIDNEY and URETER: No significant abnormality. LEFT KIDNEY and URETER: No significant abnormality. STOMACH and SMALL BOWEL: No significant abnormality. COLON: No significant abnormality. APPENDIX: No significant abnormality. PERITONEUM: No free fluid. No free air. No fluid collection. LYMPH NODES: No significant adenopathy. AORTA and ARTERIES: Moderate atherosclerotic calcification of a nondilated abdominal aorta.. IVC and VEINS: No significant abnormality. URINARY BLADDER: No significant abnormality. REPRODUCTIVE ORGANS: No significant abnormality. ADDITIONAL FINDINGS: None. SKELETAL SYSTEM: No significant abnormality. IMPRESSION: 1. No significant abnormality. Signer Name: Handy Parker MD Signed: 09/14/2019 10:36 PM Workstation Name: [id number]
[2019-09-14 23:55] LABS: Bilirubin,Urine NEG (Negative); Blood,Urine NEG (Negative); Color,Urine Colorless (Yellow); Protein,Urine <15 mg/dL mg/dL (Negative); Urobilinogen,Urine < 2.0 mg/dL (<2.0); WBC,Urine < 1.0 /HPF (0.0-6.0)
[2019-09-15 01:12] VITALS: BP 128/75
== END 2019-09-15 02:00 | disposition home or self-care (01) ==
LOC: ED 18:51
DX: F10.129 Alcohol abuse with intoxication, unspecified (principal); R10.9 Unspecified abdominal pain; F03.90 Unspecified dementia, unspecified severity, without behavioral disturbance, psychotic disturbance, mood disturbance, and anxiety; I10 Essential (primary) hypertension; E78.5 Hyperlipidemia, unspecified; F17.200 Nicotine dependence, unspecified, uncomplicated; M17.12 Unilateral primary osteoarthritis, left knee
CPT/HCPCS: 36415; 70450; 71045; 72125; 74176; 80053; 81001; 84439; 84443; 84484; 85027; 85610; 93005; 99285; J7040; 80320; G0480

== ENCOUNTER 2020-06-07 13:50 | Emergency (ER) | payer MEDICARE ==
[2020-06-07 14:47] VITALS: BP 166/107
--- NOTE | 2020-06-07 16:48 | Emergency Department Report ---
Chief Complaint: Extremity Injury, Lower Stated Complaint: WEAKNESS Time Seen by Provider: 06/07/20 16:44 - HPI History of Present Illness: This is a 69-year-old male presents the ED complaining of left second toe pain for several weeks now. Patient states pain is gotten worse and causing some pain when he walks. Patient denies any injury, trauma or falls. - ROS Review of Systems: As noted in HPI - Exam Vital Signs: Vital Signs 06/07/20 14:42 Temperature 98.4 F Pulse Rate 111 H Respiratory 18 Rate Blood Pressure 166/107 [Right] O2 Sat by Pulse 96 Oximetry Physical Exam: GENERAL: Alert and oriented x3, no apparent distress, Normal Gait, atraumatic. EXTREMITIES/MUSCULOSKELETAL: No cyanosis, clubbing, rash, lesions or edema. Full ROM bilaterally. UE/LE Pulses 2+ bilaterally. LE and UE 5+ strength bilaterally, straight leg raise negative bilaterally NEUROLOGIC: The patient is cooperative with no focal neurologic deficits. SKIN: Warm and dry, No lesions, No ulceration or induration present. MSE screening note: Focused history and physical exam performed. Due to findings the following was ordered: ED Disposition for MSE Clinical Impression: Toe pain, left Disposition: DC-01 TO HOME OR SELFCARE Is pt being admited?: No Does the pt Need Aspirin: No Condition: Stable Instructions: Arthralgia (ED) Additional Instructions: Make sure to follow up with the primary care physician as well as a quality assurance analyst as discussed. Take all your medications as you've been prescribed. If you have any worsening symptoms or develop new symptoms please return to ED immediately. Prescriptions: Acetaminophen/Codeine [Tylenol /Codeine # 3 tab] 1 tab PO Q6H PRN #10 tab PRN Reason: Pain , Severe (7-10) Forms: Work/School Release Form(ED) Time of Disposition: 17:00
== END 2020-06-07 17:26 | disposition home or self-care (01) ==
LOC: ED 13:50
DX: M79.675 Pain in left toe(s) (principal)
CPT/HCPCS: 99281